=== PATIENT | female | born 1955 | race Asian ===

== ENCOUNTER 2016-04-01 08:40 | Outpatient (CLI) | payer OTHER ==
[~2016-04-01 08:40] MED LIST: HYDROCHLOROT50 MG PO; INSU100I2 SC; KLOR-CON 1010 MEQ OR; METF500T PO; WARF5TAB6 PO
== END 2016-04-01 19:59 | disposition home or self-care (01) ==
LOC: MAMMO 08:40
DX: Z12.31 Encounter for screening mammogram for malignant neoplasm of breast (principal)
CPT/HCPCS: G0202-TC

== ENCOUNTER 2016-08-03 14:57 | Outpatient (CLI) | payer OTHER ==
[2016-08-03 15:13] LABS: PLATELET COUNT 225 K/uL (152-353)
[2016-08-03 15:42] LABS: POTASSIUM 4.5 mmol/L (3.6-5.2); SODIUM 140 mmol/L (136-145)
== END 2016-08-03 19:08 | disposition home or self-care (01) ==
LOC: LAB 14:57
PROVIDERS: Nurse Practitioner Family
DX: Z00.00 Encounter for general adult medical examination without abnormal findings (principal); I10 Essential (primary) hypertension; E66.8 Other obesity; E11.9 Type 2 diabetes mellitus without complications; Z79.899 Other long term (current) drug therapy; Z51.81 Encounter for therapeutic drug level monitoring; E55.9 Vitamin D deficiency, unspecified
CPT/HCPCS: 80053; 80061; 82306; 82607; 83036; 84436; 84443; 85027

== ENCOUNTER 2019-04-17 10:12 | Emergency (ER) | payer OTHER ==
[~2019-04-17] VITALS: Ht 177.8 cm; Wt 105.7 kg
[2019-04-17 10:24] VITALS: TEMP 97.7
[2019-04-17 11:01] LABS: PLATELET COUNT 247 K/uL (152-353)
[2019-04-17 11:05] LABS: POTASSIUM 3.8 mmol/L (3.6-5.2)
[2019-04-17 15:01] VITALS: BP 147/57
== END 2019-04-17 15:01 | disposition home or self-care (01) ==
LOC: ED 10:12
PROVIDERS: Emergency Medicine
DX: N20.0 Calculus of kidney (principal); K43.9 Ventral hernia without obstruction or gangrene
CPT/HCPCS: 36415; 80053; 81000; 82150; 83690; 85027; 99283; Q9963

== ENCOUNTER 2019-11-20 09:25 | Outpatient (CLI) | payer OTHER | END 2019-11-20 19:04 | disposition home or self-care (01) | LOC: RAD 09:25 | DX: E11.9 Type 2 diabetes mellitus without complications (principal); I10 Essential (primary) hypertension; D64.89 Other specified anemias; M54.5 Low back pain ==

== ENCOUNTER 2020-05-13 09:00 | Outpatient (CLI) | payer OTHER | END 2020-05-13 21:56 | disposition home or self-care (01) | LOC: MAMMO 09:00 | PROVIDERS: ATTEND Nurse Practitioner Family | DX: Z01.89 Encounter for other specified special examinations (principal); E11.9 Type 2 diabetes mellitus without complications; Z86.2 Personal history of diseases of the blood and blood-forming organs and certain disorders involving the immune mechanism; I10 Essential (primary) hypertension; M25.50 Pain in unspecified joint; M54.89 Other dorsalgia; Z79.899 Other long term (current) drug therapy; Z12.31 Encounter for screening mammogram for malignant neoplasm of breast ==

== ENCOUNTER 2020-05-21 13:25 | Outpatient (CLI) | payer OTHER | END 2020-05-21 21:35 | disposition home or self-care (01) | LOC: MAMMO 13:25 | PROVIDERS: ATTEND Nurse Practitioner Family | DX: R92.0 Mammographic microcalcification found on diagnostic imaging of breast (principal) ==

== ENCOUNTER 2020-07-01 08:13 | Outpatient (CLI) | payer OTHER | END 2020-07-01 20:39 | disposition home or self-care (01) | LOC: US 08:13 | PROVIDERS: ATTEND Student in an Organized Health Care Education/Training Program | DX: R80.8 Other proteinuria (principal); N18.2 Chronic kidney disease, stage 2 (mild); I10 Essential (primary) hypertension; D64.89 Other specified anemias; E11.9 Type 2 diabetes mellitus without complications; Z79.4 Long term (current) use of insulin; R10.9 Unspecified abdominal pain ==

== ENCOUNTER 2020-07-03 08:28 | Outpatient (CLI) | payer OTHER ==
[2020-07-03 09:10] LABS: PLATELET COUNT 229 K/uL (152-353)
== END 2020-07-03 22:38 | disposition home or self-care (01) ==
LOC: LABW 08:28
PROVIDERS: ATTEND Student in an Organized Health Care Education/Training Program
DX: I10 Essential (primary) hypertension (principal); N18.2 Chronic kidney disease, stage 2 (mild); R80.9 Proteinuria, unspecified; E11.9 Type 2 diabetes mellitus without complications; D64.89 Other specified anemias; R53.82 Chronic fatigue, unspecified; Z79.899 Other long term (current) drug therapy
CPT/HCPCS: 80053; 80074; 81000; 82043; 82306; 82570; 82728; 83036; 83516; 83540; 83550; 83970; 84100; 84155; 84165; 85027; 85044; 86038; 86160; 86255; 86430; 86592; 86701; 86702; 87389

== ENCOUNTER 2020-10-05 08:40 | Outpatient (CLI) | payer OTHER ==
[2020-10-05 09:05] LABS: PLATELET COUNT 222 K/uL (152-353)
[2020-10-05 09:15] LABS: POTASSIUM 4.2 mmol/L (3.6-5.2)
== END 2020-10-05 19:07 | disposition home or self-care (01) ==
LOC: LABW 08:40
PROVIDERS: ATTEND Student in an Organized Health Care Education/Training Program
DX: I12.9 Hypertensive chronic kidney disease with stage 1 through stage 4 chronic kidney disease, or unspecified chronic kidney disease (principal); N18.2 Chronic kidney disease, stage 2 (mild); R80.9 Proteinuria, unspecified; E11.9 Type 2 diabetes mellitus without complications
CPT/HCPCS: 36415; 80053; 81000; 82570; 83036; 84155; 85027

== ENCOUNTER 2021-02-03 09:27 | Outpatient (CLI) | payer OTHER ==
[2021-02-03 10:27] LABS: PLATELET COUNT 205 K/uL (152-353)
== END 2021-02-03 20:13 | disposition home or self-care (01) ==
LOC: LABW 09:27
PROVIDERS: ATTEND Student in an Organized Health Care Education/Training Program
DX: R80.8 Other proteinuria (principal); N18.2 Chronic kidney disease, stage 2 (mild); E11.9 Type 2 diabetes mellitus without complications; I12.9 Hypertensive chronic kidney disease with stage 1 through stage 4 chronic kidney disease, or unspecified chronic kidney disease
CPT/HCPCS: 36415; 80053; 81000; 82570; 84155; 85027

== ENCOUNTER 2021-04-02 09:01 | Outpatient (CLI) | payer OTHER ==
[2021-04-02 09:39] LABS: PLATELET COUNT 231 K/uL (152-353)
[2021-04-02 10:08] LABS: POTASSIUM 3.9 mmol/L (3.6-5.2)
== END 2021-04-02 19:55 | disposition home or self-care (01) ==
LOC: LABW 09:01
PROVIDERS: ATTEND Student in an Organized Health Care Education/Training Program
DX: I12.9 Hypertensive chronic kidney disease with stage 1 through stage 4 chronic kidney disease, or unspecified chronic kidney disease (principal); N18.2 Chronic kidney disease, stage 2 (mild); R80.8 Other proteinuria; E11.9 Type 2 diabetes mellitus without complications; E66.9 Obesity, unspecified; D63.1 Anemia in chronic kidney disease; E55.9 Vitamin D deficiency, unspecified; N25.81 Secondary hyperparathyroidism of renal origin; Z86.2 Personal history of diseases of the blood and blood-forming organs and certain disorders involving the immune mechanism; Z79.899 Other long term (current) drug therapy; M54.89 Other dorsalgia; Z09 Encounter for follow-up examination after completed treatment for conditions other than malignant neoplasm
CPT/HCPCS: 36415; 80053; 80061; 81000; 82306; 82570; 83036; 83735; 83970; 84100; 84155; 84436; 84439; 84443; 85027

== ENCOUNTER 2021-07-30 08:49 | Outpatient (CLI) | payer OTHER | END 2021-07-30 20:24 | disposition home or self-care (01) | LOC: LABW 08:49 | PROVIDERS: ATTEND Student in an Organized Health Care Education/Training Program | DX: N18.2 Chronic kidney disease, stage 2 (mild) (principal); R80.8 Other proteinuria; I10 Essential (primary) hypertension; E11.9 Type 2 diabetes mellitus without complications; E66.9 Obesity, unspecified; D63.1 Anemia in chronic kidney disease; E55.9 Vitamin D deficiency, unspecified; N25.81 Secondary hyperparathyroidism of renal origin | CPT/HCPCS: 36415; 80053; 81000; 82306; 82570; 83735; 83970; 84100; 84156; 84550; 85018 ==

== ENCOUNTER 2021-12-03 08:11 | Outpatient (CLI) | payer OTHER ==
[2021-12-03 09:09] LABS: POTASSIUM 4.1 mmol/L (3.6-5.2)
== END 2021-12-03 20:30 | disposition home or self-care (01) ==
LOC: LABW 08:11
PROVIDERS: ATTEND Student in an Organized Health Care Education/Training Program
DX: I12.9 Hypertensive chronic kidney disease with stage 1 through stage 4 chronic kidney disease, or unspecified chronic kidney disease (principal); N18.2 Chronic kidney disease, stage 2 (mild); R80.8 Other proteinuria; E11.9 Type 2 diabetes mellitus without complications; E66.9 Obesity, unspecified; D63.1 Anemia in chronic kidney disease; E55.9 Vitamin D deficiency, unspecified; N25.81 Secondary hyperparathyroidism of renal origin; E79.0 Hyperuricemia without signs of inflammatory arthritis and tophaceous disease
CPT/HCPCS: 36415; 80053; 81002; 82306; 82570; 83036; 83735; 83970; 84100; 84156; 84550; 85018

== ENCOUNTER 2022-02-07 22:40 | Emergency (ER) | payer OTHER ==
[~2022-02-07] VITALS: Ht 177.8 cm; Wt 105.7 kg
[2022-02-07 23:01] LABS: PLATELET COUNT 217 K/uL (152-353)
[2022-02-07 23:30] LABS: POTASSIUM 4.2 mmol/L (3.6-5.2)
[2022-02-08 05:24] VITALS: BP 126/52; TEMP 98.4
== END 2022-02-08 05:24 | disposition short-term general hospital (02) ==
LOC: ED 22:40
PROVIDERS: Emergency Medicine Emergency Medical Services
PROC: 0T9 Urinary System, Drainage (ICD-10-PCS; principal; 2022-02-07)
DX: I63.89 Other cerebral infarction (principal)
CPT/HCPCS: 36415; 36600; 51702; 80053; 81002; 82805; 83735; 84484; 85027; 85610; 93005; 96360; 96361; 96374; 99284

== ENCOUNTER 2022-05-03 07:41 | Outpatient (CLI) | payer OTHER ==
[2022-05-03 08:08] LABS: PLATELET COUNT 221 K/uL (152-353)
[2022-05-03 08:25] LABS: POTASSIUM 4.1 mmol/L (3.6-5.2)
== END 2022-05-03 19:22 | disposition home or self-care (01) ==
LOC: LABW 07:41
PROVIDERS: ATTEND Student in an Organized Health Care Education/Training Program
DX: I12.9 Hypertensive chronic kidney disease with stage 1 through stage 4 chronic kidney disease, or unspecified chronic kidney disease (principal); N18.2 Chronic kidney disease, stage 2 (mild); R80.8 Other proteinuria; E11.9 Type 2 diabetes mellitus without complications; E66.9 Obesity, unspecified; D63.1 Anemia in chronic kidney disease; E55.9 Vitamin D deficiency, unspecified; N25.81 Secondary hyperparathyroidism of renal origin; E79.0 Hyperuricemia without signs of inflammatory arthritis and tophaceous disease
CPT/HCPCS: 36415; 80053; 81002; 82306; 82570; 83036; 83735; 83970; 84100; 84156; 84550; 85027

== ENCOUNTER 2022-08-04 07:01 | Outpatient (CLI) | payer OTHER ==
[2022-08-04 07:48] LABS: POTASSIUM 4.1 mmol/L (3.6-5.2)
[2022-08-04 07:58] LABS: PLATELET COUNT 222 K/uL (152-353)
== END 2022-08-04 19:41 | disposition home or self-care (01) ==
LOC: LABW 07:01
PROVIDERS: ATTEND Student in an Organized Health Care Education/Training Program
DX: I12.9 Hypertensive chronic kidney disease with stage 1 through stage 4 chronic kidney disease, or unspecified chronic kidney disease (principal); N18.2 Chronic kidney disease, stage 2 (mild); R80.8 Other proteinuria; E66.9 Obesity, unspecified; D63.1 Anemia in chronic kidney disease; E55.9 Vitamin D deficiency, unspecified; N25.81 Secondary hyperparathyroidism of renal origin; E79.0 Hyperuricemia without signs of inflammatory arthritis and tophaceous disease; D50.8 Other iron deficiency anemias; E78.2 Mixed hyperlipidemia; R94.6 Abnormal results of thyroid function studies; E11.65 Type 2 diabetes mellitus with hyperglycemia; Z79.899 Other long term (current) drug therapy
CPT/HCPCS: 36415; 80053; 81002; 82306; 82570; 83036; 83735; 83970; 84100; 84156; 84550; 85027

== ENCOUNTER 2022-12-06 07:07 | Outpatient (CLI) | payer OTHER ==
[2022-12-06 07:41] LABS: PLATELET COUNT 238 K/uL (152-353)
[2022-12-06 07:59] LABS: POTASSIUM 4.3 mmol/L (3.6-5.2)
== END 2022-12-06 18:55 | disposition home or self-care (01) ==
LOC: LABW 07:07
PROVIDERS: ATTEND Student in an Organized Health Care Education/Training Program
DX: R80.8 Other proteinuria (principal); N18.2 Chronic kidney disease, stage 2 (mild); E66.9 Obesity, unspecified; D63.1 Anemia in chronic kidney disease; E79.0 Hyperuricemia without signs of inflammatory arthritis and tophaceous disease; E11.65 Type 2 diabetes mellitus with hyperglycemia; I12.9 Hypertensive chronic kidney disease with stage 1 through stage 4 chronic kidney disease, or unspecified chronic kidney disease; E55.9 Vitamin D deficiency, unspecified
CPT/HCPCS: 36415; 80053; 81002; 82306; 82570; 83036; 83735; 83970; 84100; 84156; 84550; 85027